=== PATIENT | female | born 1955 | race Caucasian/White ===

== ENCOUNTER 2019-10-20 07:25 | Outpatient (CLI) | payer BC, SELFPAY ==
--- NOTE | ~2019-10-20 | US_ITS ---
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 TECHNIQUE: Multiple grayscale and Doppler ultrasound images of the abdomen were obtained. COMPARISON: Ultrasound 03/02/2019, CT abdomen and pelvis 06/27/2008 FINDINGS: The visualized portions of the head, body, and tail of the pancreas are normal. The liver i s normal without focal lesion. No liver surface nodularity. There is normal flow in main portal vein. The gallbladder is normal in size. No gallstones. Gallbladder wall thickening is likely secondary to chronic liver disease. The common duct is normal and measures 6 mm. IMPRESSION: 1. Gallbladder wall thickening, likely secondary to chronic liver disease. Reviewed, dictated and finalized at location B.
== END 2019-10-20 07:26 | disposition home or self-care (01) ==
PROVIDERS: PCP Family Medicine
DX: K74.3 Primary biliary cirrhosis (principal)
CPT/HCPCS: 76705

== ENCOUNTER 2019-11-04 08:27 | Outpatient (CLI) | payer BC, SELFPAY ==
--- NOTE | ~2019-11-04 | MM_ITS ---
EXAMINATION: MM screening unique BI w batsheva HISTORY: Screening TECHNIQUE: Craniocaudal and mediolateral oblique 3-D tomosynthesis images were obtained and synthetic 2-D images were generated. CAD analysis was submitted and interpreted. COMPARISON: Comparison to multiple prior studies sequentially, with oldest reviewed study dated 08/14. BREAST PARENCHYMAL COMPOSITION: There are scattered areas of fibroglandular density. FINDINGS: There is no evidence of suspicious mass, calcification, or architectural distortion to sugg est malignancy in either breast. There has been no suspicious interval change. IMPRESSION: 1. No mammographic evidence of malignancy. 2. Recommend routine screening mammography in one year. BI-RADS Category 1: Negative Reviewed, dictated and finalized at location A.
== END 2019-11-04 08:28 | disposition home or self-care (01) ==
PROVIDERS: PCP Family Medicine; Visit Provider Family Medicine
DX: Z12.31 Encounter for screening mammogram for malignant neoplasm of breast (principal)
CPT/HCPCS: 77063; 77067

== ENCOUNTER 2020-04-05 09:44 | Outpatient (CLI) | payer BC, SELFPAY ==
--- NOTE | ~2020-04-05 | US_ITS ---
US abdomen limited INDICATION: Cirrhosis. Biliary cholangitis. PROCEDURE: Realtime right upper abdominal ultrasound. COMPARISON: Ultrasound dated 10/20/2019 FINDINGS: The pancreas is normal without focal mass or pancreatic ductal dilation. Liver echotexture is normal without focal mass or intrahepatic biliary dilatation. There is normal directional flow i n the portal vein. The gallbladder is normal without stones, gallbladder wall thickening or pericholecystic fluid. Comm on bile duct measures the 4 mm. No sonographic Rice's sign. IMPRESSION: 1: Normal limited abdominal ultrasound. Reviewed, dictated and finalized at location B. [facility]
== END 2020-04-05 09:45 | disposition home or self-care (01) ==
PROVIDERS: PCP Family Medicine
DX: K74.3 Primary biliary cirrhosis (principal)
CPT/HCPCS: 76705

== ENCOUNTER 2020-11-07 10:20 | Outpatient (CLI) | payer MEDICARE, SELFPAY ==
--- NOTE | ~2020-11-07 | MM_ITS ---
EXAMINATION: MM screening unique BI w batsheva HISTORY: Screening TECHNIQUE: Craniocaudal and mediolateral oblique 3-D tomosynthesis images were obtained and synthetic 2-D images were generated. CAD analysis was submitted and interpreted. COMPARISON: Comparison to multiple prior studies sequentially, with oldest reviewed study dated 08/18. BREAST PARENCHYMAL COMPOSITION: There are scattered areas of fibroglandular density. FINDINGS: There is no evidence of suspicious mass, calcification, or architectural distortion to sugg est malignancy in either breast. There has been no suspicious interval change. IMPRESSION: 1. No mammographic evidence of malignancy. 2. Recommend routine screening mammography in one year. BI-RADS Category 1: Negative Reviewed, dictated and finalized at location A.
== END 2020-11-07 10:21 | disposition home or self-care (01) ==
LOC: ANHIMG 10:22
PROVIDERS: PCP Family Medicine; Visit Provider Family Medicine
DX: Z12.31 Encounter for screening mammogram for malignant neoplasm of breast (principal)
CPT/HCPCS: 77063; 77067

== ENCOUNTER 2021-04-05 08:36 | Outpatient (CLI) | payer MEDICARE, SELFPAY ==
--- NOTE | ~2021-04-05 | US_ITS ---
EXAMINATION: US abdomen limited EXAM DATE: 04/05/2021 09:20 INDICATION: Hepatic Cirrhosis Due To Primary Biliary Cholangitis . TECHNIQUE: Multiple grayscale and Doppler images of the abdomen right upper quadrant were obtained (b y a technologist who performed the scan) and subsequently reviewed. Comparison is made to prior exami nation from 04/05/2020. FINDINGS: The pancreatic head and body are normal in appearance. The pancreatic tail is not visualized. The l iver has normal echogenicity and contour. There are no focal liver lesions identified. There is no evidence of intrahepatic biliary duct dilation. Portal venous flow was seen in the hepatopedal, nor mal direction and has normal Doppler waveform. No right-sided hydronephrosis. Common bile duct measures 6 mm, which is normal. The gallbladder wall is normal in thickness, with ex pected amount of distention. No sonographic evidence of pericholecystic fluid. There is no cholelit hiases. Technologist performing exam reports patient did not demonstrate sonographic Rice's sign. Please note that this sign is less reliable in patients who have received pain medication. IMPRESSION: 1. Unremarkable abdominal ultrasound exam. Reviewed, dictated and finalized at location B. [employer]
== END 2021-04-05 08:37 | disposition home or self-care (01) ==
PROVIDERS: PCP Family Medicine
DX: K74.3 Primary biliary cirrhosis (principal)
CPT/HCPCS: 76705

== ENCOUNTER 2021-09-21 11:04 | Day surgery (SDC) | payer MEDICARE, SELFPAY ==
[2021-09-01 11:54] VITALS: BMI 36.1
[2021-09-21 11:32] VITALS: BMI 35.9
[2021-09-21 11:35] VITALS: BP 101/77; PULSE 76; RESP 20; TEMP 37.3; O2SAT 100
[2021-09-21] MEDS: LACTATED RINGERS 1,000 ML 150 ML IV CONT (11:35)
--- NOTE | 2021-09-21 12:36 | P.PNAN_ITS ---
Anes - Initial Pre Proc Eval Procedure: Operation Date: 09/21/21 12:30 Proposed Procedures p Esophagogastroduodenoscopy - Westley Hernandez MD Date/Time: 09/21/21 12:36 Surgeon: Westley Hernandez MD Pre Op Diagnosis: EGD Pre Op Diagnosis: DYSPHAGIA Patient Data Age: 65 Gender: F Height: 1.68 m Weight: 100.9 kg Allergies Allergy/AdvReac Type Severity Reaction Status Date / Time meclizine Allergy Unknown Hives Verified 09/21/21 11:30 Home Medications Medication Instructions Recorded Confirmed Type black cohosh 20 mg tablet 20 mg PO DAILY 09/01/21 09/21/21 History citalopram 20 mg tablet 20 mg PO DAILY 09/01/21 09/21/21 History lifitegrast 5 % eye drops in a 1 drp EACH EYE Q12H 09/01/21 09/21/21 History dropperette (Xiidra) multivitamin with minerals-folic 1 tablet PO DAILY 09/01/21 09/21/21 History acid 0.4 mg tablet trazodone 50 mg tablet 50 mg PO HS 09/01/21 09/21/21 History ursodiol 300 mg capsule 300 mg PO BID 09/01/21 09/21/21 History Patient hx anesthesia problems: none Family hx anesthesia problems: none Results Review: All pre-operative results and documents have been reviewed as part of the pre- operative evaluation. [facility] Past Medical History Medical History (Updated 09/21/21 @ 12:42 by Elsa Fox CRNA) Anxiety Breast CA Morbid obesity Primary biliary cholangitis Surgical History Surgical History (Updated 09/21/21 @ 12:42 by Elsa Fox CRNA) S/P breast lumpectomy S/P hip replacement Family History Family History Other Diabetes mellitus Family history of arthritis Family history of coronary artery disease Family history of lung disease Hypertension Social History Social History Smoking status: Former smoker Alcohol intake: unknown Substance use type: does not use Living arrangements: with family Spiritual care concerns: No Anes - Eval Final PreProcedure Day of Procedure 09/21/21 12:36 Patient weight: morbidly obese Heart: regular rate and rhythm Lungs: clear to auscultation and normal air movement Airway: Mallampati scale class II Neurological: alert and oriented Last oral intake: >/= 8 hours ASA classification: III Emergent: no Anesthetic plan: proceed Anesthesia type and monitoring: general GIVS Results Review: All pre-operative results and documents have been reviewed as part of the pre- operative evaluation. Informed Consent: The patient's anesthetic plan and its attendant risks and benefits were discussed with the patient/family/POA. Questions were solicited and answers provided to the satisfaction of the patient/family/POA.
--- NOTE | 2021-09-21 12:51 | P.PNAN_ITS ---
Anes - Initial Pre Proc Eval Procedure: Operation Date: 09/21/21 12:30 Proposed Procedures p Esophagogastroduodenoscopy - Westley Hernandez MD Date/Time: 09/21/21 12:51 Surgeon: Westley Hernandez MD Pre Op Diagnosis: DYSPHAGIA Patient Data Age: 65 Gender: F Height: 1.68 m Weight: 100.9 kg Last Vital Signs Temp 37.3 C 09/21/21 11:35 Pulse 76 09/21/21 11:35 Resp 20 09/21/21 11:35 BP 101/77 09/21/21 11:35 Pulse Ox 100 09/21/21 11:35 O2 Del Method Room Air 09/21/21 11:35 Allergies Allergy/AdvReac Type Severity Reaction Status Date / Time meclizine Allergy Unknown Hives Verified 09/21/21 11:30 Home Medications Medication Instructions Recorded Confirmed Type black cohosh 20 mg tablet 20 mg PO DAILY 09/01/21 09/21/21 History citalopram 20 mg tablet 20 mg PO DAILY 09/01/21 09/21/21 History lifitegrast 5 % eye drops in a 1 drp EACH EYE Q12H 09/01/21 09/21/21 History dropperette (Xiidra) multivitamin with minerals-folic 1 tablet PO DAILY 09/01/21 09/21/21 History acid 0.4 mg tablet trazodone 50 mg tablet 50 mg PO HS 09/01/21 09/21/21 History ursodiol 300 mg capsule 300 mg PO BID 09/01/21 09/21/21 History Patient hx anesthesia problems: none Family hx anesthesia problems: none Results Review: All pre-operative results and documents have been reviewed as part of the pre- operative evaluation. [facility] Past Medical History Medical History Anxiety Breast CA Morbid obesity Primary biliary cholangitis Surgical History Surgical History S/P breast lumpectomy S/P hip replacement Family History Family History Other Diabetes mellitus Family history of arthritis Family history of coronary artery disease Family history of lung disease Hypertension Social History Social History Smoking status: Former smoker Alcohol intake: unknown Substance use type: does not use Living arrangements: with family Spiritual care concerns: No Anes - Eval Final PreProcedure Day of Procedure 09/21/21 12:51 Patient weight: obese Heart: regular rate and rhythm Lungs: clear to auscultation Airway: Mallampati scale class II Neurological: alert and oriented Last oral intake: >/= 8 hours ASA classification: III Emergent: no Anesthetic plan: proceed Anesthesia type and monitoring: general GIVS and standard monitoring Results Review: All pre-operative results and documents have been reviewed as part of the pre- operative evaluation. Informed Consent: The patient's anesthetic plan and its attendant risks and benefits were discussed with the patient/family/POA. Questions were solicited and answers provided to the satisfaction of the patient/family/POA.
--- NOTE | 2021-09-21 13:29 | WPDGICN ---
Assessment and Plan Assessment and plan (1) Dysphagia: Code(s): R13.10 - Dysphagia, unspecified Status: Acute Assessment and Plan: Patient has difficulty swallowing. She describes several distinct episodes of difficulty swallowing followed by emesis. There is concern she has esophageal narrowing. Plan is for EGD to assess more thoroughly. Further recommendations will be given after endoscopy. (2) Primary biliary cholangitis: Code(s): K74.3 - Primary biliary cirrhosis Status: Acute Assessment and Plan: Patient has an underlying history of primary biliary cholangitis. Currently followed by hepatology service at [facility]. She has been treated with Ursodiol with good response to therapy. Because she is going to have an endoscopy we will assess for the presence of varices at this time as well. 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 GI Consult Note Consult date/time: 09/21/21 13:29 Reason for consult: Dysphagia HPI: Meaghan Wharton is a 65 year old female presents for EGD at the request of Dr. Chung. Patient reports several distinct episodes where food will catch in the mid substernal portion of the chest. She subsequently will regurgitate or vomit. She is somewhat uncertain whether passes distally into the stomach. Patient denies any heartburn. She has had no weight loss. No bleeding is described. She is referred now for endoscopic evaluation. Patient denies any heartburn or indication of acid reflux in the past. Patient's past medical history is significant for PBC. Currently followed by Dr. Pereira at [facility] she is being treated with Ursodiol. She states that at [facility] an EGD was performed 10 years ago that revealed no evidence of esophageal varices. [facility] Past Medical History Medical History Anxiety Breast CA Morbid obesity Primary biliary cholangitis Surgical History Surgical History S/P breast lumpectomy S/P hip replacement Family History Family History Other Diabetes mellitus Family history of arthritis Family history of coronary artery disease Family history of lung disease Hypertension Social History Social History Smoking status: Former smoker Alcohol intake: unknown Substance use type: does not use Living arrangements: with family Spiritual care concerns: No Meds Home Medications and Allergies Home Medications Medication Instructions Recorded Confirmed Type black cohosh 20 mg tablet 20 mg PO DAILY 09/01/21 09/21/21 History citalopram 20 mg tablet 20 mg PO DAILY 09/01/21 09/21/21 History lifitegrast 5 % eye drops in a 1 drp EACH EYE Q12H 09/01/21 09/21/21 History dropperette (Xiidra) multivitamin with minerals-folic 1 tablet PO DAILY 09/01/21 09/21/21 History acid 0.4 mg tablet trazodone 50 mg tablet 50 mg PO HS 09/01/21 09/21/21 History ursodiol 300 mg capsule 300 mg PO BID 09/01/21 09/21/21 History Allergies Allergy/AdvReac Type Severity Reaction Status Date / Time meclizine Allergy Unknown Hives Verified 09/21/21 11:30 Vital Signs Vital Signs - 24 hr 09/21/21 11:35 Temperature 99.1 F Pulse Rate 76 Respiratory Rate 20 Blood Pressure 101/77 Pulse Oximetry 100 Oxygen Delivery Room Air Exam Narrative: Physical exam reveals patient be alert. Vital signs are stable. HEENT exam is unremarkable. Patient is anicteric. Lungs are clear to auscultation and percussion. Heart is without murmur or extra sounds. Abdomen bowel sounds are present soft nontender with no organomegaly. Digital external rectal exam is normal.
[2021-09-21 13:52] VITALS: BP 91/48; PULSE 74; RESP 16; O2SAT 98
--- NOTE | 2021-09-21 13:54 | WPDANESPN ---
Anes - Prog Note Post-Op Date/Time: 09/21/21 13:55 Cardiovascular status: normal Respiratory status: normal Airway patency: baseline Mental status: baseline Post-Op hydration status: normal Vital Signs: Last Vital Signs Temp 37.3 C 09/21/21 11:35 Pulse 76 09/21/21 11:35 Resp 20 09/21/21 11:35 BP 101/77 09/21/21 11:35 Pulse Ox 100 09/21/21 11:35 O2 Del Method Room Air 09/21/21 11:35 Pain Score (VAS): 0/10 I/O: Intake & Output 09/20/21 09/21/21 09/21/21 23:59 07:59 15:59 Intake Total 500 Balance 500 Patient Feedback: Patient satisfied with anesthetic care.
[2021-09-21 14:02] VITALS: BP 101/77; PULSE 74; RESP 16; O2SAT 97
--- NOTE | 2021-09-21 14:05 | SUR.PHASEII ---
PT AWAKE AND ALERT. DENIES PAIN. EATING PIPO CRACKERS AND DRINKING SODA
[2021-09-21 14:12] VITALS: BP 117/90; PULSE 74; RESP 16
== END 2021-09-21 14:23 | disposition home or self-care (01) ==
PROVIDERS: PCP Family Medicine; Visit Provider Internal Medicine Gastroenterology
PROC: 0DJ08ZZ Inspection of Upper Intestinal Tract, Via Natural or Artificial Opening Endoscopic (ICD-10-PCS; CPT 43235; principal; 2021-09-21 12:30)
DX: R13.19 Other dysphagia (principal)
CPT/HCPCS: 43235

== ENCOUNTER 2021-12-13 14:02 | Outpatient (CLI) | payer MEDICARE, SELFPAY ==
--- NOTE | ~2021-12-13 | MM_ITS ---
EXAMINATION: MM screening [facility] BI w batsheva HISTORY: Screening TECHNIQUE: Craniocaudal and mediolateral oblique 3-D tomosynthesis images were obtained and synthetic 2-D images were generated. CAD analysis was submitted and interpreted. COMPARISON: Comparison to multiple prior studies sequentially, with oldest reviewed study dated 08/22. BREAST PARENCHYMAL COMPOSITION: There are scattered areas of fibroglandular density. FINDINGS: There is architectural distortion in the right breast, consistent with previous lumpectomy. There is no evidence of suspicious mass, calcification, or architectural distortion to suggest malig rabia in either breast. There has been no suspicious interval change. IMPRESSION: 1. No mammographic evidence of malignancy. 2. Recommend routine screening mammography in one year. BI-RADS Category 2: Benign finding(s). Reviewed, dictated and finalized at location A.
== END 2021-12-13 14:03 | disposition home or self-care (01) ==
PROVIDERS: PCP Family Medicine; Visit Provider Family Medicine
DX: Z12.31 Encounter for screening mammogram for malignant neoplasm of breast (principal)
CPT/HCPCS: 77063; 77067

== ENCOUNTER 2022-04-05 09:55 | Outpatient (CLI) | payer MEDICARE, SELFPAY ==
--- NOTE | ~2022-04-05 | US_ITS ---
EXAMINATION: US abdomen limited DATE: 04/05/2022 10:37 INDICATION: Hepatic fibrosis TECHNIQUE: Multiple grayscale and Doppler ultrasound images of the abdomen were obtained. COMPARISON: 04/05/2021 FINDINGS: Bowel gas obscures visualization of the pancreas. The visualized portions of the pancreas a re unremarkable. The liver is normal with normal echogenicity and echotexture. No surface nodularity. Normal hepatopetal flow in the main portal vein. The gallbladder is normal with no abnormal wall thi ckening, pericholecystic fluid or stones. The normal common bile duct measures 6 mm. There was no son ographic Rice sign. IMPRESSION: 1. Unremarkable abdominal ultrasound. Reviewed, dictated and finalized at location L. [facility]
== END 2022-04-05 09:56 | disposition home or self-care (01) ==
PROVIDERS: PCP Family Medicine
DX: K74.02 Hepatic fibrosis, advanced fibrosis (principal)
CPT/HCPCS: 76705

== ENCOUNTER 2022-10-23 12:01 | Outpatient (CLI) | payer MEDICARE, SELFPAY ==
--- NOTE | 2022-10-23 | ECG_ITS ---
Measurements Intervals [place] Rate: 80 P: 50 TN: 171 QRS: 36 QRSD: 93 T: 2 QT: 369 QTc: 427 Interpretive Statements SINUS RHYTHM NONSPECIFIC T-WAVE ABNORMALITY ABNORMAL ECG NO PREVIOUS ECG AVAILABLE FOR COMPARISON Electronically Signed On 10-23-2022 15:15:43 CDT by Codey Winston M.D.
[2022-10-23 13:30] LABS: Basophils Absolute Auto 0.1 K/mm3 (0.0-0.1); Eosinophils Absolute Auto 0.4 K/mm3 (0-0.3); Eosinophils Percent Auto 7.2 % (0-4.4); Hematocrit 42.4 % (37.0-47.0); Hemoglobin 13.3 g/dL (12.0-15.0); Immature Granulocyte Absolute 0.01 K/mm3 (0.00-0.031); Immature Granulocyte Percent A 0.2 % (0-0.5); Lymphocytes Absolute Auto 1.25 K/mm3 (0.9-3.2); Lymphocytes Percent Auto 24.2 % (18.3-44.2); Mean Corpuscular HGB Conc 31.4 g/dl (32-36); Mean Corpuscular Hemoglobin 28.9 pg (26-34); Mean Corpuscular Volume 92.2 fl (80-100); Mean Platelet Volume 10.5 fl (7.4-10.4); Monocytes Absolute Auto 0.5 K/mm3 (0.1-0.6); Monocytes Percent Auto 9.3 % (2.6-8.5); Neutrophils Percent Auto 58.1 % (45.5-73.1); Platelet Count Result 234 k/mm3 (150-375); Red Cell Distribution Width 13.8 % (11.5-14.5); White Blood Count 5.2 K/mm3 (4.5-10.0)
[2022-10-23 13:35] LABS: Appearance Urine Clear (Clear); Bacteria Urine 1+ /hpf; Bilirubin Urine Negative (Negative); Blood Urine Negative (Negative); Color Urine Dark Yellow (Yellow); Glucose Urine UA Negative (Negative); Ketones Urine Negative (Negative); Leukocyte Esterase Ur 1+ LEU/UL (Negative); Nitrate Urine Negative (Negative); Non Pathogenic Casts 0-2; Protein Urine Negative (Negative); RBC Urine 0-2 /hpf (0-2); Specific Grav Ur 1.016 (1.001-1.035); Squamous Epithelial Cell Urine Few /hpf (Few); Urobilinogen Urine 0.2 mg/dL (<2.0); pH Urine 6.5 (5.0-9.0)
[2022-10-23 13:37] LABS: Add Urine Microscopic? YES
[2022-10-23 13:42] LABS: Chloride 104 mmol/L (98-107)
[2022-10-23 13:46] LABS: Anion Gap 6 mmol/L (8-16); Blood Urea Nitrogen 16 mg/dL (7-17); Calcium 9.2 mg/dL (8.4-10.2); Carbon Dioxide 28 mmol/L (22-30); Estimated Glomerular Filt Rate > 60; Glucose 90 mg/dL (65-110); Potassium 4.3 mmol/L (3.4-5.0); Sodium 138 mmol/L (137-145)
== END 2022-10-23 12:02 | disposition home or self-care (01) ==
PROVIDERS: PCP Family Medicine; Visit Provider Orthopaedic Surgery
DX: M16.9 Osteoarthritis of hip, unspecified (principal); E78.00 Pure hypercholesterolemia, unspecified; R94.31 Abnormal electrocardiogram [ECG] [EKG]
CPT/HCPCS: 36415; 80048; 81001; 85025; 87086; 87088; 93005

== ENCOUNTER 2022-11-27 11:57 | Outpatient (CLI) | payer MEDICARE, SELFPAY ==
[2022-11-27 13:46] LABS: Albumin Level 4.4 g/dL (3.5-5.1)
[2022-11-27 13:49] LABS: Appearance Urine Clear (Clear); Bacteria Urine None Seen /hpf; Bilirubin Urine Negative (Negative); Blood Urine Negative (Negative); Color Urine Yellow (Yellow); Glucose Urine UA Negative (Negative); Ketones Urine Negative (Negative); Leukocyte Esterase Ur Trace LEU/UL (Negative); Nitrate Urine Negative (Negative); Non Pathogenic Casts 0-2; Protein Urine Negative (Negative); RBC Urine 0-2 /hpf (0-2); Specific Grav Ur 1.007 (1.001-1.035); Squamous Epithelial Cell Urine None seen /hpf (Few); Urobilinogen Urine 0.2 mg/dL (<2.0); WBC Urine 0-5 /hpf
[2022-11-27 13:51] LABS: Urine Cotinine NEGATIVE
[2022-11-27 13:52] LABS: INR 0.9; Partial Thromboplastin Time 30.4 SECONDS (22.3-36.8); Prothrombin Time 12.8 Seconds (11.1-14.7)
[2022-11-27 13:53] LABS: Add Urine Microscopic? YES
[2022-11-27 14:17] LABS: Hemoglobin A1C 5.1 % (<5.7)
== END 2022-11-27 11:58 | disposition home or self-care (01) ==
LOC: ANHSURGERY 12:01
PROVIDERS: PCP Family Medicine; Visit Provider Orthopaedic Surgery
DX: M16.11 Unilateral primary osteoarthritis, right hip (principal); Z01.818 Encounter for other preprocedural examination
CPT/HCPCS: 80307; 81001; 82040; 83036; 85610; 85730; 87081

== ENCOUNTER 2022-12-11 14:57 | Observation (INO) | payer MEDICARE, SELFPAY ==
[2022-11-27 12:33] VITALS: BP 116/59; PULSE 73; RESP 16; TEMP 37.1; O2SAT 96; BMI 38.2
--- NOTE | 2022-11-27 12:43 | PC.NURSE ---
Report to the Outpatient Waiting Room, entrance under the green pavilion located off [facility], at time ___6:00AM____ on date __12/11/22 . Planned Procedure Time: __7:30AM . Time changes happen often and if your time is changed the preop area will call you the afternoon before. - You and your visitor will be asked to self-screen and do not enter if you have any COVID symptoms. - A mask is optional within the hospital at this time. Patients may have clear liquids (water, carbonated beverages, clear teas, apple juice) until 3 hours prior to surgery with a maximum of 20 ounces. - No food from midnight until time of surgery. Take the following medications with a SIP of water the morning of surgery: ___CITALOPRAM DO NOT STOP ANY OF YOUR OTHER PRESCRIPTION MEDICATIONS PRIOR TO SURGERY ?EXCEPT THE FOLLOWING Medications to discontinue per physician __HOLD ALL VITAMINS/SUPPLEMENTS 3 DAYS PRE-OP PER ANESTHESIA- LAST DOSE 12/07/[address] PANG Please no make-up, nail lao, hairspray, perfume, deodorant, or body powder the day of surgery. No jewelry (including any body piercings) or valuables the day of surgery, leave them at home. Please take a shower or bath the night before, or the morning of, surgery with an antibacterial soap. Wear comfortable, loose fitting clothing. - Jewelry must be removed prior to entering the operating room. Rings and piercings that are not removed may be cut off. - The hospital will not accept responsibility for valuables. - Please leave all valuables, including medications, at home the day of surgery. If you are going home after surgery, a licensed pile driver operator helper must drive you home. - NO public transportation without another adult if you receive anesthesia. - We recommend that an adult stay with you for 24 hours following discharge. - We also recommend that you do not drive, make important decision, drink alcoholic beverages, or take any drugs that were not prescribed by your health care provider for at least 24 hours after your discharge time. Follow any additional instructions given to you from your surgeon. If you or anyone in your household have experienced Covid symptoms in the past week, please notify your surgeon or the nurse liaison at the phone number below for possible testing. Telephone instructions given to __PATIENT and asked if any additional questions and then verbalized understanding. Patient advised to call surgeon office or pre surgery nurse liaison [phone] if any additional questions.
[2022-12-11] VITALS (16 sets, daily range): BP systolic 88–130; BP diastolic 56–86; PULSE 70–88; RESP 12–20; TEMP 36.1–37.2; O2SAT 92–100
--- NOTE | ~2022-12-11 | XR_ITS ---
EXAMINATION: XR hip RT 1V DATE: 12/11/2022 11:51 INDICATION: Postoperative evaluation following right total hip arthroplasty TECHNIQUE: Anteroposterior view of the right hip were obtained. COMPARISON: 10/22/2022 FINDINGS: Interval placement of a noncemented right total hip arthroplasty which appears well seated in near an atomic alignment on the single provided frontal projection. No fractures identified. IMPRESSION: 1. Right total hip arthroplasty, negative for postoperative purposes. Reviewed, dictated and finalized at location A.
--- NOTE | 2022-12-11 06:44 | WPDANESEPPF ---
Anes - Initial Pre Proc Eval Procedure: Operation Date: 12/11/22 07:30 Proposed Procedures p Right Total Hip Arthroplasty - Jin Juarez MD Date/Time: 12/11/22 06:44 Surgeon: Jin Juarez MD Pre Op Diagnosis: right hip djd Patient Data Age: 67 Gender: F Height: 1.64 m Weight: 102.3 kg Last Vital Signs Temp 37.1 C 11/27/22 12:33 Pulse 73 11/27/22 12:33 Resp 16 11/27/22 12:33 BP 116/59 L 11/27/22 12:33 Pulse Ox 96 11/27/22 12:33 O2 Del Method Room Air 11/27/22 12:33 Allergies Allergy/AdvReac Type Severity Reaction Status Date / Time meclizine Allergy Unknown Hives / Unverified 12/06/22 09:24 Red Face,Hives acetaminophen [From Tylenol] AdvReac AVOIDS Verified 12/03/22 13:57 BECAUSE OF LIVER PROBLEMS Home Medications Medication Instructions Recorded Confirmed Type black cohosh 20 mg tablet 40 mg PO DAILY 09/01/21 11/27/22 History lifitegrast 5 % eye drops in a 1 drp EACH EYE Q12H 09/01/21 11/27/22 History dropperette (Xiidra) multivitamin with minerals-folic 1 tablet PO DAILY 09/01/21 11/27/22 History acid 0.4 mg tablet ursodiol 300 mg capsule 900 mg PO QAM 09/01/21 11/27/22 History ascorbic acid (vitamin C) 1,000 mg 1 g PO DAILY 08/09/22 11/27/22 History tablet cholecalciferol (vitamin D3) 50 100 mcg PO DAILY 08/09/22 11/27/22 History mcg (2,000 unit) capsule folic acid 400 mcg tablet 0.4 mg PO DAILY 08/09/22 11/27/22 History garlic 300 mg capsule (Odorless 10 mg PO DAILY 08/09/22 11/27/22 History Garlic) glucosamine sulf dipotassium Cl 2 tablet PO DAILY 08/09/22 11/27/22 History 750 mg-chondroitin sulf 600 mg tablet vitamin B complex 1 tablet PO DAILY 08/09/22 11/27/22 History aspirin 81 mg tablet,delayed 81 mg PO DAILY 11/27/22 11/27/22 History release calcium carbonate 500 mg-vitamin 1 tablet PO DAILY 11/27/22 11/27/22 History D3 10 mcg (400 unit) tablet (Calcium 500 + D) citalopram 20 mg tablet 20 mg PO QAM 11/27/22 11/27/22 History fiber 2 tablet PO DAILY 11/27/22 11/27/22 History inulin-sorbitol 2 gram chewable 2 tablet PO DAILY 11/27/22 11/27/22 History tablet (Fiber Supplement (inulin)) lutein 25 mg-zeaxanthin 5 mg 2 cap PO DAILY 11/27/22 11/27/22 History capsule xvlgjcon-ptqorx-snvor extract 5 4 cap PO DAILY 11/27/22 11/27/22 History mg-6 mg-150 mg capsule (Fruit and Vegetable Daily) omega-3s 667 um-zby-onx-fish 3 cap PO DAILY 11/27/22 11/27/22 History oil-vitamin D3 250 unit capsule ([place] Benefits) omeprazole 20 mg capsule,delayed 20 mg PO QAM 11/27/22 11/27/22 History release trazodone 50 mg tablet 100 mg PO HS PRN Insomnia 11/27/22 11/27/22 History ursodiol 300 mg capsule 600 mg PO HS 11/27/22 11/27/22 History chlorhexidine gluconate 4 % 1 applic topical DAILY #237 mL 11/29/22 Rx topical liquid (Hibiclens) Patient hx anesthesia problems: none Family hx anesthesia problems: none Results Review: All pre-operative results and documents have been reviewed as part of the pre-operative evaluation. [facility] Past Medical History Medical History Anxiety Breast CA Degenerative joint disease (DJD) of hip Major depressive disorder, recurrent, in remission, unspecified Morbid obesity Personal history of malignant neoplasm of breast Primary biliary cholangitis Pure hypercholesterolemia, unspecified Surgical History Surgical History S/P breast lumpectomy S/P hip replacement Family History Family History Other Diabetes mellitus Family history of arthritis Family history of coronary artery disease Family history of lung disease Hypertension Social History Social History Smoking packs per day: 1 Smoking cigarettes per day: 20.0 Yea
[2022-12-11] MEDS: LACTATED RINGERS 1,000 ML 30 ML IV CONT ×3 (07:04→11:35)
[2022-12-11] MEDS: TRANEXAMIC ACID 1,000MG/ISO100 1,000 MG/100 ML BAG 200 MG IVPB (07:15)
--- NOTE | 2022-12-11 07:19 | WPDHPUPDATE1 ---
History and Physical Update Update Date/Time: 12/11/22 07:19 History and Physical has been reviewed, including an updated exam of the patient. There are NO changes in the patient's condition. Risks, benefits, and alternatives have been discussed and questions answered. Patient agrees to proceed with procedure.
[2022-12-11] MEDS: ceFAZolin 2 GM/D5W 50 ML 2 GM/50 ML BAG IVPB ×3 (08:12→23:28)
[2022-12-11] MEDS: TRANEXAMIC ACID 1,000 MG/10 ML AMPUL 1000 MG IV PUSH (10:30)
--- NOTE | 2022-12-11 11:19 | W.PM.PROC2 ---
Procedure Note - Detailed Date of Procedure 12/11/22 Pre-op Diagnosis right hip djd Post-op Diagnosis Same Procedure Performed R MACARIO Surgeon Jin Juarez MD Anesthesia General Description of Procedure THE PATIENT WAS TAKEN TO THE OPERATING ROOM IN STABLE CONDITION AND WAS PLACED IN THE LATERAL DECUBITUS AND THE RIGHT LOWER EXTREMITY WAS PREPPED AND DRAPED IN THE STERILE FASHION. INCISION WAS MADE IN THE POSTERIOR LATERAL SIDE OF THE HIP, DOWN TO THE FASCIA LAYER. THE FASCIA WAS INCISED. THE HIP WAS EXPOSED. THE SHORT EXTERNAL ROTATORS WERE EXPOSED. THE SCIATIC NERVE WAS IDENTIFIED. INCISION WAS MADE THROUGH THE SORT EXTERNAL ROTATORS AND THE CAPSULE OF THE HIP JOINT. THE HIP WAS DISLOCATED. AN OSTEOTOMY WAS MADE TO THE FEMORAL NECK ABOUT 1 CM PROXIMAL TO THE LESSER TROCHANTER. THE ACETABULUM WAS EXPOSED. THERE WAS SEVERE DJD SEEN. BEGINNING WITH A 44 REAMER THE ACETABULUM WAS REAMED TO 49 MM. A 49 MM TRIAL WAS PLACED IN 35 DEG OF ABDUCTION AND ANTEVERSION WAS IN ALIGNMENT WITH THE TRANS ACETABULAR LIGAMENT. THE FIT WAS EXCELLENT. THE TRIAL WAS REMOVED. A 50 MM BIOMET G7 COMPONENT WAS THEN TAPPED IN TO PLACE IN 35 DEG OF ABDUCTION AND ANTEVERSION IN ALIGNMENT WITH THE TRANSVERSE ACETABULAR LIGAMENT. THE FIT WAS EXCELLENT. THE ACETABULAR LINER WAS PLACED AND CHECKED FOR STABILITY. NEXT THE FEMUR WAS PREPARED WITH INITIAL CANAL FINDER THEN SEQUENTIAL BROACHING WITH A TAPERLOC HIP SYSTEM, UNTIL A 11 BROACH FIT WELL IN 15 OF ANTEVERSION. A -3 STANDARD OFFSET NECK WITH 36 MM HEAD TRIAL WAS PLACED. THE SHUCK TEST WAS EXCELLENT AND THE STABILITY IN FLEXION AND ROTATION WAS EXCELLENT. LEG LENGTHS WERE GROSSLY EQUAL. TRIALS WERE REMOVED. A BIOMET TAPERLOC 11 STEM WAS PLACED WITH A HIGH OFFSET NECK THE FIT WAS EXCELLENT IN 15 DEG OF ANTEVERSION. A -3 CERAMIC 36 MM FEMORAL HEAD WAS PLACED. THE HIP WAS TRIALED AND THE STABILITY WAS EXCELLENT WERE THE LEG LENGTHS AND THE SHUCK TEST. THE WOUND WAS IRRIGATED WITH STERILE BETADINE AND WATER FOR 3 MIN. THEN WASHED AGAIN. THE CAPSULE AND THE EXTERNAL ROTATORS WERE APPROXIMATED WITH NUMBER 2 VICRYL. THE FASCIA WITH No 2 QUIL AND THE SUB CUTANEOUS LAYER WITH 2-0 ABSORBABLE SUTURE WITH A RUNNING 3-0 SUBCUTICULAR LAYER WELL. DERMABOND WAS PLACED AND STERILE DRESSING WAS APPLIED. PATIENT WAS PLACED BACK ON TO THE SUPINE POSITION AND WAS EXTUBATED Estimated Blood Loss 800 Complications No immediate complications Condition Stable Disposition PACU
[2022-12-11] MEDS: fentaNYL CITRATE INJ (*CRX) 100 MCG/2 ML VIAL 25 MCG IV PUSH ×4 (12:10→13:06)
--- NOTE | 2022-12-11 13:40 | ADMGEN ---
This patient, Meaghan Wharton, was admitted to -. Patient/family oriented to hospital policies and general routines including ID bracelet, bed and alarms, visiting hours, pain management, procedures, bathroom and other care routines, personal items, smoking policy, room service/diet, and visiting hours. Information on how to activate the Rapid Response Team has been discussed. Patient/Family are encouraged to report perceived risks to care and to ask questions if they do not understand what they are told or what they should do.
[2022-12-11] MEDS: SODIUM CHLORIDE 0.9% IV 1,000 ML 125 ML IV CONT ×2 (14:43→22:31)
[2022-12-11] MEDS: KETOROLAC 15 MG/ML VIAL (*BKC) IV PUSH ×2 (14:44→20:27)
[2022-12-11] MEDS: HYDROcodone/acetaminophen (*CRX) 7.5-325 MG TABLET 1 TAB PO (14:47)
[2022-12-11] MEDS: SENNA/DOCUSATE SODIUM TABLET 2 TAB PO (16:54)
[2022-12-11] MEDS: ursodioL 300 MG CAPSULE 600 MG PO (20:26)
[2022-12-11] MEDS: ASPIRIN 325 MG ENTERIC TABLET PO (20:27)
[2022-12-12] VITALS (7 sets, daily range): BP systolic 82–114; BP diastolic 48–71; PULSE 86–95; RESP 18–20; TEMP 36.4–37.1; O2SAT 93–99
[2022-12-12] MEDS: KETOROLAC 15 MG/ML VIAL (*BKC) IV PUSH ×3 (01:41→14:54)
[2022-12-12 05:21] LABS: Basophils Percent Auto 0.2 % (0.2-1.2); Hematocrit 32.9 % (37.0-47.0); Hemoglobin 9.7 g/dL (12.0-15.0); Immature Granulocyte Absolute 0.05 K/mm3 (0.00-0.031); Immature Granulocyte Percent A 0.4 % (0-0.5); Lymphocytes Percent Auto 10.9 % (18.3-44.2); Mean Corpuscular HGB Conc 29.5 g/dl (32-36); Mean Corpuscular Hemoglobin 28.6 pg (26-34); Mean Corpuscular Volume 97.1 fl (80-100); Monocytes Absolute Auto 1.1 K/mm3 (0.1-0.6); Monocytes Percent Auto 9.5 % (2.6-8.5); Neutrophils Absolute Auto 9.5 K/mm3 (1.3-6.7); Platelet Count Result 179 k/mm3 (150-375); Red Blood Count 3.39 M/mm3 (4.2-5.4); Red Cell Distribution Width 14.2 % (11.5-14.5)
[2022-12-12 05:26] LABS: Anion Gap 4 mmol/L (8-16); Blood Urea Nitrogen 14 mg/dL (7-17); Carbon Dioxide 24 mmol/L (22-30); Chloride 106 mmol/L (98-107); Estimated CRCL calculation 79 ml/min; Estimated Glomerular Filt Rate > 60; Glucose 105 mg/dL (65-110); Potassium 4.6 mmol/L (3.4-5.0); Sodium 134 mmol/L (137-145)
[2022-12-12 05:49] LABS: Anisocytosis 1+ (NORMAL); Hypochromasia 1+ (NORMAL); Platelet Estimate Adequate (Adequate)
[2022-12-12 05:50] LABS: Crenated RBC 1+ (NORMAL); Schistocytes None Seen (NORMAL)
[2022-12-12] MEDS: SODIUM CHLORIDE 0.9% IV 1,000 ML 125 ML IV CONT (05:50)
[2022-12-12] MEDS: HYDROcodone/acetaminophen (*CRX) 7.5-325 MG TABLET 1 TAB PO (08:18)
[2022-12-12] MEDS: PANTOPRAZOLE 40 MG TABLET PO (08:55)
[2022-12-12] MEDS: ASCORBIC ACID 500 MG TABLET 1000 MG PO (08:55)
[2022-12-12] MEDS: ursodioL 300 MG CAPSULE 900 MG PO (08:55)
[2022-12-12] MEDS: SENNA/DOCUSATE SODIUM TABLET 2 TAB PO ×2 (08:55→16:22)
[2022-12-12] MEDS: CITALOPRAM HYDROBROMIDE 20 MG TABLET PO (08:55)
[2022-12-12] MEDS: polyethylene glycoL 3350 17 GM POWD.PACK PO (08:55)
[2022-12-12] MEDS: CHOLECALCIFEROL 1,000 UNITS TABLET 4000 UNITS PO (08:56)
[2022-12-12] MEDS: ASPIRIN 325 MG ENTERIC TABLET PO ×2 (08:56→20:25)
[2022-12-12] MEDS: ceFAZolin 2 GM/D5W 50 ML 2 GM/50 ML BAG IVPB (09:00)
--- NOTE | 2022-12-12 10:07 | WPDANESPN ---
Anes - Prog Note Post-Op Date/Time: 12/12/22 10:07 Cardiovascular status: normal Respiratory status: normal Airway patency: baseline Mental status: baseline Post-Op hydration status: normal Vital Signs: Last Vital Signs Temp 36.4 C 12/12/22 08:28 Pulse 88 12/12/22 08:28 Resp 18 12/12/22 08:28 BP 82/48 L 12/12/22 08:28 Pulse Ox 95 12/12/22 08:28 O2 Del Method Room Air 12/11/22 18:42 O2 Flow Rate 6 12/11/22 12:00 Pain Score (VAS): 0 I/O: Intake & Output 12/11/22 12/12/22 12/12/22 23:59 07:59 15:59 Intake Total 1220 1000 120 Balance 1220 1000 120 Laboratory Tests 12/12/22 05:07 12/12/22 05:07 12/12/22 05:07 WBC 12.0 H RBC 3.39 L Hgb 9.7 L D Hct 32.9 L MCV 97.1 MCH 28.6 MCHC 29.5 L RDW 14.2 Plt Count 179 MPV 10.0 Immature Gran % (Auto) 0.4 Neut % (Auto) 79.0 H Lymph % (Auto) 10.9 L [place] % (Auto) 9.5 H Eos % (Auto) 0.0 Baso % (Auto) 0.2 Lymph # (Auto) 1.30 [place] # (Auto) 1.1 H Eos # (Auto) 0.0 Baso # (Auto) 0.0 Abs Immat Gran (auto) 0.05 H Absolute Neuts (auto) 9.5 H Absolute Nucleated RBC 0.0 Nucleated RBC % 0.0 Platelet Estimate Adequate Hypochromasia 1+ Anisocytosis 1+ Crenated Cell 1+ Schistocytes None seen Sodium 134 L Potassium 4.6 Chloride 106 Carbon Dioxide 24 Anion Gap 4 L BUN 14 Creatinine 0.70 Estim Creat Clear Calc 79 Estimated GFR > 60 Glucose 105 Calcium 8.0 L Post-procedural complaints: none Patient Feedback: Patient satisfied with anesthetic care.
--- NOTE | 2022-12-12 14:10 | PM.PNORT ---
Progress Note: A&P Assessment and Plan (1) Degenerative joint disease (DJD) of hip: Qualifiers: Osteoarthritis type: primary Laterality: right Qualified Code(s): M16.11 - Unilateral primary osteoarthritis, right hip Code(s): M16.9 - Osteoarthritis of hip, unspecified Status: Acute Assessment and Plan: POD 1 WITH SLOW PROGRESS. WILL REEVALUATE TOMORROW FOR ACUTE REHAB VS SNF. Subjective Subjective Date/Time Seen: 12/12/22 14:10 Interval history: POD 1 HAVING A LOT OF NAUSEA AND VOMITING. BP IS STABLE BUT LABILE AT TIMES WITH PAIN MEDS. NO CALF PAIN. SLOW PROGRESS WITH PT. Exam Extrem: Other: VSS AFEBRILE DRESSING DRY NV INTACT NEG HOMANS SIGN, CALF AND THIGH SOFT NON TENDER Objective Data Vital Signs Vital Signs: Vital Signs - 24 hr 12/11/22 15:38 12/11/22 14:27 12/11/22 14:15 Temperature 36.2 C L Pulse Rate 88 Respiratory Rate 14 Blood Pressure 90/61 L Pulse Oximetry 94 99 Oxygen Delivery Room Air Room Air 12/11/22 14:23 12/11/22 14:53 12/11/22 15:53 Temperature 36.4 C 36.4 C 36.4 C Pulse Rate 70 82 82 Respiratory Rate 14 14 14 Blood Pressure 91/58 L 104/56 L 97/58 L Pulse Oximetry 97 100 95 Oxygen Delivery 12/11/22 18:42 12/11/22 19:53 12/11/22 23:53 Temperature 36.6 C 37.2 C Pulse Rate 73 86 Respiratory Rate 20 20 Blood Pressure 88/61 L 99/59 L Pulse Oximetry 97 96 Oxygen Delivery Room Air 12/12/22 03:53 12/12/22 08:28 12/12/22 08:00 Temperature 37.1 C 36.4 C Pulse Rate 86 88 88 Respiratory Rate 20 18 18 Blood Pressure 86/52 L 82/48 L Pulse Oximetry 96 95 95 Oxygen Delivery Room Air 12/12/22 13:12 Temperature 36.7 C Pulse Rate 87 Respiratory Rate 18 Blood Pressure 95/60 L Pulse Oximetry 97 Oxygen Delivery Intake/Output Intake/Output: Intake & Output 12/09/22 12/10/22 12/11/22 12/12/22 23:59 23:59 23:59 23:59 Intake Total 1870 1660 Balance 1870 1660 Meds/Results Medications: Active Medications Generic Name Dose Route Start Last Admin Trade Name Freq PRN Reason Stop Dose Admin Acetaminophen 650 mg 12/11/22 14:08 Acetaminophen 325 Mg Tablet PO Q6H PRN Mild Pain (1-3) or Fever Hydrocodone Bitart/Acetaminophen 1 tab 12/11/22 14:08 12/12/22 08:18 Hydrocodone/Acetaminophen (*Crx) 7.5-325 Mg Tablet PO 1 tab Q3H PRN Administration Pain Rated 4-6 Hydrocodone Bitart/Acetaminophen 2 tab 12/11/22 14:08 Hydrocodone/Acetaminophen (*Crx) 7.5-325 Mg Tablet PO Q6H PRN Pain Rated 7-10 Ascorbic Acid 1,000 mg 12/12/22 09:00 12/12/22 08:55 Ascorbic Acid 500 Mg Tablet PO 1,000 mg DAILY ISH Administration Aspirin 325 mg 12/11/22 21:00 12/12/22 08:56 Aspirin 325 Mg Enteric Tablet PO 325 mg Q12HR ISH Administration Calcium Carbonate 500 mg 12/12/22 09:00 12/12/22 08:55 Calcium/Vitamin D 500 Mg Tablet PO 500 mg DAILY ISH Administration Citalopram Hydrobromide 20 mg 12/12/22 09:00 12/12/22 08:55 Citalopram Hydrobromide 20 Mg Tablet PO 20 mg QAM ISH Administration Diazepam 5 mg 12/11/22 14:08 Diazepam (*Crx) 5 Mg Tablet PO Q6H PRN Anxiety/Muscle Spasm Sodium Chloride 1,000 mls @ 125 mls/hr 12/11/22 14:08 12/12/22 05:50 Normal Saline Iv IV CONT 125 mls/hr .Q8H ISH Administration Naloxone HCl 0.1 mg 12/11/22 14:08 Naloxone Hcl 0.4 Mg/Ml Vial IV PUSH Q2M PRN Opiate Reversal Non-Formulary Medication 1 drop 12/11/22 21:00 12/12/22 11:17 Lifitegrast [Xiidra] EACH EYE 01/10/23 20:59 Not Given Q12HR ISH Ondansetron HCl 4 mg 12/11/22 14:08 Ondansetron Inj 4 Mg/2 Ml Vial IV PUSH Q4H PRN Nausea And Vomiting Pantoprazole Sodium 40 mg 12/12/22 09:00 12/12/22 08:55 Pantoprazole 40 Mg Tablet PO 40 mg QAM ISH Administration Polyethylene Glycol 17 gm 12/12/22 09:00 12/12/22 08:55 Polyethylene Glycol 3350 17 Gm Powd.Pack PO 17 gm QAM S
[2022-12-12] MEDS: ursodioL 300 MG CAPSULE 600 MG PO (20:25)
[2022-12-12] MEDS: HYDROcodone/acetaminophen (*CRX) 7.5-325 MG TABLET 2 TAB PO (22:48)
[2022-12-13 03:54] VITALS: BP 99/54; PULSE 89; RESP 18; TEMP 36.5; O2SAT 91
[2022-12-13 08:00] VITALS: PULSE 89; RESP 18; O2SAT 91
[2022-12-13] MEDS: ASCORBIC ACID 500 MG TABLET 1000 MG PO (08:53)
[2022-12-13] MEDS: CITALOPRAM HYDROBROMIDE 20 MG TABLET PO (08:53)
[2022-12-13] MEDS: CHOLECALCIFEROL 1,000 UNITS TABLET 4000 UNITS PO (08:53)
[2022-12-13] MEDS: ursodioL 300 MG CAPSULE 900 MG PO (08:53)
[2022-12-13] MEDS: PANTOPRAZOLE 40 MG TABLET PO (08:53)
[2022-12-13] MEDS: ASPIRIN 325 MG ENTERIC TABLET PO (08:54)
[2022-12-13] MEDS: polyethylene glycoL 3350 17 GM POWD.PACK PO (08:54)
[2022-12-13] MEDS: SENNA/DOCUSATE SODIUM TABLET 2 TAB PO (08:54)
--- NOTE | 2022-12-13 09:19 | PM.PNORT ---
Progress Note: A&P Assessment and Plan (1) S/P total hip arthroplasty: Qualifiers: Laterality: right Qualified Code(s): Z96.641 - Presence of right artificial hip joint Code(s): Z96.649 - Presence of unspecified artificial hip joint Status: Acute Assessment and Plan: POD #2 : Right MACARIO Continue PT/OT. WBAT. Walker. HIGH FALL RISK. Continue pain control. Ice Hip. Protect skin. DVT prophylaxis with Aspirin. SCDs. Incentive Spirometry Use reviewed. Monitor Dressing. Change prior to discharge. Bowel Regimen. Dispo: Home with Home Health pending progress with PT/OT Plan Reviewed exam, vitals, labs with attending MD, Dr. Juarez. Agrees with current plan as indicated above. No further recommendations at this time. Subjective Subjective Date/Time Seen: 12/13/22 09:19 Post Op day: 2 Interval history: POD #2: Right MACARIO Patient doing well. Pain well controlled. Improvement in BP today. Sitting up in chair at time of exam. Hopeful for discharge. Review of Systems Review of Systems: All systems reviewed & are unremarkable except as noted in HPI and below Constitutional: Constitutional: Denies chills, Denies fever(s), Denies headache(s), Denies lethargy and Reports weakness ENT: Denies headache(s) Cardiovascular: Cardiovascular: Denies chest pain, Denies diaphoresis, Denies lightheadedness, Denies palpitations, Denies dyspnea and Denies dyspnea on exertion Respiratory: Respiratory: Denies cough, Denies dyspnea and Denies dyspnea on exertion Gastrointestinal: Gastrointestinal: Denies constipation, Denies diarrhea, Denies nausea and Denies vomiting Genitourinary: Genitourinary: Reports urinary frequency, Denies dysuria and Denies urinary hesitancy Musculoskeletal: Musculoskeletal: Reports joint swelling (Right Hip ) and Reports limited range of motion (Right Hip due to recent surgery ) Neurologic: Denies headache(s) and Reports weakness Endocrine: Endocrine: Denies palpitations Exam Const: General: comfortable and no acute distress Resp: Effort & Inspection: normal respiratory effort Cardio: Rate: regular rate Rhythm: regular rhythm GI: Inspection: non-distended Skin: General skin exam: normal color Other: Incision right hip c/d/i. Surrounding tissue without redness/warmth. Mild swelling consistent with recent surgery. No drainage. Neuro: Cognition (Neuro): normal cognition Speech: normal speech Extrem: Right lower extremity: normal to inspection, normal capillary refill, hip/thigh Details: tenderness Location: of the hip (Thigh soft ) Location: laterally and anteriorly, swelling Location: at the hip, abnormal ROM (limited consistent with recent surgery ) Details: pain with active ROM during and pain with passive ROM during and other (Incision c/d/i. ); no deformity and no unusual warmth, knee Details: normal to inspection; no tenderness and no swelling, lower leg (Negative Lesley's Sign ) Details: normal to inspection and no edema; no tenderness, ankle (+ankle dorsiflexion/plantarflexion) Details: normal to inspection and no edema; no tenderness, no swelling and no ecchymosis and foot Details: normal capillary refill, toes with normal ROM, vascular exam Details: dorsalis pedis pulse present and motor-sensory exam Details: light-touch normal; no tenderness Objective Data Vital Signs Vital Signs: Vital Signs - 24 hr 12/12/22 13:12 12/12/22 18:19 12/12/22 20:26 Temperature 36.7 C 36.6 C 36.8 C Pulse Rate 87 93 88 Respiratory Rate 18 18 18 Blood Pressure 95/60 L 102/52 L 114/71 Pulse Oximetry 97 98 99 Oxygen Delivery 12/12/22 20:35 12/12/22 23:39 12/13/22 03:54 Temperature 37.0 C 36.5 C Pulse Rate 95 89 Respiratory Rate 18 18 Blood Pressure 105/64 99/54 L Pulse Oximetry 93 91 Oxygen Delivery Room Air Intake/Output Intake/Output: Intake & Output 12/10/22 12/11/22 12/12/22 12/13/22 23:59 23:59 23:59 23:59 Intake Total 1870 1900 120
[2022-12-13 13:39] VITALS: BP 102/62; PULSE 103; RESP 18; TEMP 36.6; O2SAT 98
--- NOTE | 2022-12-13 14:33 | PM.DS ---
DS: Admitting Diagnosis Discharge Date 12/13/2022 Admitting Diagnosis Right MACARIO DS: Discharge Diagnosis Discharge Diagnosis (1) S/P total hip arthroplasty: Qualifiers: Laterality: right Qualified Code(s): Z96.641 - Presence of right artificial hip joint Code(s): Z96.649 - Presence of unspecified artificial hip joint Status: Acute Assessment and Plan: POD #2 : Right MACARIO Continue PT/OT. WBAT. Walker. HIGH FALL RISK. Continue pain control. Ice Hip. Protect skin. DVT prophylaxis with Aspirin. SCDs. Incentive Spirometry Use reviewed. Monitor Dressing. Change prior to discharge. Bowel Regimen. Dispo: Home with Home Health pending progress with PT/OT Plan Reviewed exam, vitals, labs with attending MD, Dr. Juarez. Agrees with current plan as indicated above. No further recommendations at this time. DS: Summary Hospital Course Reason for hospitalization: Right MACARIO Hospital Course: 67 year old female admitted s/p Right MACARIO for postoperative medical management, pain control and mobilization with PT/OT. Patient progressed well with PT/OT. Difficulty with nausea and hypotension on POD #1. Improved on POD #2. Lowered pain medication dose with improvement. The patient has been cleared to be discharged home with home health at this time. All discharge care instructions reviewed at depth. New medications reviewed. Follow up planned for 3 weeks in the outpatient orthopedic clinic with Dr. Juarez. Dr. Juarez agrees with current discharge plans. Status at Discharge Functional status at discharge: uses cane/walker Overall status at discharge: patient is progressing back to baseline Time Spent with Patient Time attestation: Total time spent providing and/or coordinating discharge services: Exam Const: General: comfortable and no acute distress Resp: Effort & Inspection: normal respiratory effort Cardio: Rate: regular rate Rhythm: regular rhythm GI: Inspection: non-distended Skin: General skin exam: normal color Other: Incision right hip c/d/i. Surrounding tissue without redness/warmth. Mild swelling consistent with recent surgery. No drainage. Neuro: Cognition (Neuro): normal cognition Speech: normal speech Extrem: Right lower extremity: normal to inspection, normal capillary refill, hip/thigh Details: tenderness Location: of the hip (Thigh soft ) Location: laterally and anteriorly, swelling Location: at the hip, abnormal ROM (limited consistent with recent surgery ) Details: pain with active ROM during and pain with passive ROM during and other (Incision c/d/i. ); no deformity and no unusual warmth, knee Details: normal to inspection; no tenderness and no swelling, lower leg (Negative Lesley's Sign ) Details: normal to inspection and no edema; no tenderness, ankle (+ankle dorsiflexion/plantarflexion) Details: normal to inspection and no edema; no tenderness, no swelling and no ecchymosis and foot Details: normal capillary refill, toes with normal ROM, vascular exam Details: dorsalis pedis pulse present and motor-sensory exam Details: light-touch normal; no tenderness Discharge Plan Discharge Attending physician on discharge: Jin Juarez Discharging Clinician: Eveline Kat Patient Disposition: Home Health Service Activity: may shower and no driving Diet: as tolerated Wound Care Instructions: follow printed instructions Discharge Instructions: Post Op Total Hip Replacement Instructions Dr. Jin Juarez [phone] Your dressing will be changed prior to your discharge. You will be sent home with one additional dressing to be changed on post op day 7 by the home health RN. You may remove the dressing on post op day 14. Your incision was closed with dermabond, allow the dermabond to fall off naturally once your dressing is removed. Do not pull at the dermabond or disrupt incision healing. You may shower with your dressing but do not submerge in a bath tub.
[2022-12-13] MEDS: HYDROcodone/acetaminophen (*CRX) 5-325 MG TABLET 1 TAB PO (15:50)
== END 2022-12-13 16:00 | disposition home health service (06) ==
LOC: ANH2MED 15:49
PROVIDERS: Admitting Provider Orthopaedic Surgery; PCP Family Medicine; Visit Provider Orthopaedic Surgery
PROC: (CPT 27130; principal; 2022-12-11 07:30)
DX: M16.11 Unilateral primary osteoarthritis, right hip (principal); F41.9 Anxiety disorder, unspecified; F33.40 Major depressive disorder, recurrent, in remission, unspecified; E66.01 Morbid (severe) obesity due to excess calories; G47.00 Insomnia, unspecified; Z68.37 Body mass index [BMI] 37.0-37.9, adult; E78.00 Pure hypercholesterolemia, unspecified; Z87.891 Personal history of nicotine dependence; Z79.82 Long term (current) use of aspirin; Z79.899 Other long term (current) drug therapy
CPT/HCPCS: 27130; 36415; 73501; 80048; 80307; 81001; 82040; 83036; 85025; 85610; 85730; 86850; 86900; 86901; 87081; 97110; 97116; 97161; 97165; 97530; 97535; A9270; C1776; G0378; J0171; J0690; J1100; J1170; J1885; J2250; J2270; J2405; J2704; J2795; J3010; J7030; J7120

== ENCOUNTER 2023-02-21 13:56 | Outpatient (CLI) | payer MEDICARE, SELFPAY ==
--- NOTE | ~2023-02-21 | MM_ITS ---
EXAMINATION: MM screening unique BI w batsheva HISTORY: Screening mammogram TECHNIQUE: Craniocaudal and mediolateral oblique 3-D tomosynthesis images were obtained and synthetic 2-D images were generated. CAD analysis was submitted and interpreted. COMPARISON: 12/13/2021, 11/07/2020, 11/04/2019 bilateral screening mammogram examinations BREAST PARENCHYMAL COMPOSITION: There are scattered areas of fibroglandular density. FINDINGS: Volume loss and mid to upper outer right breast scarring and retraction are again noted, wi thout significant change since 11/04/2019, consistent with prior partial mastectomy for breast cancer. There is some associated benign calcifications. There is no evidence of suspicious mass, calcification, or new architectural distortion to suggest m alignancy in either breast. There has been no suspicious interval change. IMPRESSION: 1. Status post right partial mastectomy for breast cancer. No mammographic evidence of malignancy. 2. Recommend routine screening mammography in one year. BI-RADS Category 2: Benign finding(s). Reviewed, dictated and finalized at location A. CIPAL MILITARY ANALYST IMPRESSION: 1. Status post right partial mastectomy for breast cancer. No mammographic evid ence of malignancy. 2. Recommend routine screening mammography in one year. BI-RADS Category 2: Benign finding(s).
== END 2023-02-21 13:57 | disposition home or self-care (01) ==
LOC: ANHIMG 13:58
PROVIDERS: PCP Family Medicine; Visit Provider Family Medicine
DX: Z12.31 Encounter for screening mammogram for malignant neoplasm of breast (principal)
CPT/HCPCS: 77063; 77067

== ENCOUNTER 2023-05-14 08:50 | Outpatient (CLI) | payer MEDICARE, SELFPAY ==
--- NOTE | ~2023-05-14 | US_ITS ---
Limited Abdominal Sonogram: Real-time sonographic imaging of the right upper quadrant was performed. Clinical History: Hepatic fibrosis Findings: The liver appears mildly heterogeneous/echogenic, with no evidence of mass lesion or bile duct dilatation. Main portal vein demonstrates normal direction of flow. The gallbladder is well dist ended, and appears normal with no evidence of gallstone or wall thickening. The common bile duct chinmay ures 4 mm. The visualized pancreas, aorta, and IVC are unremarkable. Impression: Mild heterogeneous/echogenic hepatic echotexture. Correlate for fatty infiltration or other chronic l iver disease. Reviewed, dictated and finalized at location . Impression: Mild heterogeneous/echogenic hepatic echotexture. Correlate for fatty infiltrat ion or other chronic liver disease.
== END 2023-05-14 08:51 | disposition home or self-care (01) ==
PROVIDERS: PCP Family Medicine; Visit Provider Internal Medicine Gastroenterology
DX: K74.02 Hepatic fibrosis, advanced fibrosis (principal); K74.3 Primary biliary cirrhosis
CPT/HCPCS: 76705

== ENCOUNTER 2024-01-27 10:56 | Outpatient (CLI) | payer MEDICARE, SELFPAY ==
--- NOTE | ~2024-01-27 | DEXA_ITS ---
Bone Density Report Name: SHANNON FRIEDMAN Age: 68 Sex: Female Ethnicity: White Date of : 1955 Indication: postmenopausal; screening for osteoporosis; prior fracture; cancer; Referring Provider: IRMA, JHONY Study: Bone densitometry was performed. Exam Date: January 27, 2024 Accession number: [id number] Bone Density: Region BMD T-score Z-score Classification AP Spine(L1-L4) 1.033 -0.1 1.9 Normal World Health Organization criteria for BMD impression classify patients as: Normal (T-score at or above -1.0), Osteopenia (T-score between -1.0 and -2.5), or Osteoporosis (T-score at or below -2.5). Clinical Information Provided by Patient: Have had a previous hip or vertebral fracture Has had a low trauma fracture Has used the following medications: Vitamin D, Calcium Has the following medical conditions: Cancer Patient maximum height was 66 No regular weight bearing exercise Does not regularly consume dairy products Onset of menses at age 10 Number of children 0 Impression: The patient has normal bone mass. The patient has risk factors, including: previous fracture. Discussion: INCREASED RISK OF FRACTURE DUE TO HISTORY OF FRACTURE. The patient's previous fracture puts the patient at high risk of a future fracture. In untreated patients, the risk of osteoporotic fracture increases approximately two-fold for each 1.0 SD decrease in T-score. Low bone density is not the only risk factor for fracture; also consider factors such as patient's age, frailty or poor health, risk of falling, risk of injury, previous osteoporotic fracture, family history of osteoporosis, cigarette smoking, low body weight, etc. Not everyone with a low trauma fracture has osteoporosis; osteomalacia and other metabolic bone disorders should also be considered. Patients who have osteoporosis should be evaluated for specific diseases and conditions (secondary causes) that may cause or contribute to bone loss and fracture risk. National Osteoporosis Foundation (NOF) recommends pharmacologic intervention for patients with a prior hip or vertebral fracture regardless of BMD T-score. The patient should follow a healthful lifestyle (good nutrition with adequate calcium and vitamin D, and appropriate weight-bearing exercise). Follow-Up: Consider a repeat BMD and Vertebral Fracture Assessment (VFA) exam in 2 years or sooner if medically necessary, to reassess this patient's status. Reported by: AIDEE on 01/27/2024 11:30:00 AM. Reviewed, dictated and finalized at location Miguel ERNANDEZ
== END 2024-01-27 10:57 | disposition home or self-care (01) ==
LOC: ANHIMG 11:03
PROVIDERS: PCP Family Medicine; Visit Provider Internal Medicine Gastroenterology
DX: K74.3 Primary biliary cirrhosis (principal); K74.00 Hepatic fibrosis, unspecified; Z78.0 Asymptomatic menopausal state
CPT/HCPCS: 77080

== ENCOUNTER 2024-03-19 09:59 | Outpatient (CLI) | payer MEDICARE, SELFPAY ==
--- NOTE | ~2024-03-19 | MM_ITS ---
EXAMINATION: MM screening unique BI w batsheva HISTORY: Screening TECHNIQUE: Craniocaudal and mediolateral oblique 3-D tomosynthesis images were obtained and synthetic 2-D images were generated. CAD analysis was submitted and interpreted. COMPARISON: Comparison to multiple prior studies sequentially, with oldest reviewed study dated 10/2017. BREAST PARENCHYMAL COMPOSITION: Not dense: There are scattered areas of fibroglandular density. FINDINGS: There are stable lumpectomy changes in the upper outer quadrant of the right breast. There is no evidence of suspicious mass, calcification, or architectural distortion to suggest malignancy i n either breast. There has been no suspicious interval change. IMPRESSION: 1. No mammographic evidence of malignancy. 2. Recommend routine screening mammography in one year. BI-RADS Category 2: Benign finding(s). Reviewed, dictated and finalized at location A. IESEL ENGINEERING MANAGER
== END 2024-03-19 10:00 | disposition home or self-care (01) ==
PROVIDERS: Visit Provider Family Medicine
DX: Z12.31 Encounter for screening mammogram for malignant neoplasm of breast (principal)
CPT/HCPCS: 77063; 77067

== ENCOUNTER 2025-02-23 09:58 | Outpatient (CLI) | payer MEDICARE, SELFPAY ==
--- NOTE | ~2025-02-23 | MR_ITS ---
EXAMINATION: MR lumbar spine wo con DATE: 02/23/2025 10:22 INDICATION: Low back pain. Right hip and leg pain. TECHNIQUE: Magnetic resonance imaging (MRI) of the lumbar spine was performed without intravenous contrast. COMPARISON: None FINDINGS: There is 7 degrees levocurvature of lumbar spine. There is mild chronic anterior wedging of T10-L1 vertebral bodies. There is mildly decreased disc height at L1-L2, moderately decreased disc height at L2-L3, and severely decreased disc height at L3-L4, L4-L5, and L5-S1. The distal spinal cord signal intensity is normal. The conus medullaris is at T12-L1. The following disc levels are specifically discussed: L1-L2: The disc is bulging and has an annular fissure. There is mild bilateral facet joint osteoarthritis. There is mild bilateral neural foraminal stenosis. There is mild central canal stenosis. L2-L3: The disc is bulging and has an annular fissure. There is severe right and mild left facet joint osteoarthritis. There is mild bilateral neural foraminal stenosis. There is mild central canal stenosis. L3-L4: The disc is bulging and has an annular fissure. There is moderate right and mild left facet joint osteoarthritis. There is moderate right and mild left neural foraminal stenosis. There is mild central canal stenosis. L4-L5: The disc is bulging and has an annular fissure. There is moderate right and severe left facet joint osteoarthritis. There is mild bilateral neural foraminal stenosis. There is mild central canal stenosis. L5-S1: The disc is bulging. There is severe bilateral facet joint osteoarthritis. There is mild bilateral neural foraminal stenosis. There is mild central canal stenosis. IMPRESSION: 1. Severe lumbar spondylosis. Reviewed, dictated and finalized at location E. EKEEPING ROOM ATTENDANT
== END 2025-02-23 09:59 | disposition home or self-care (01) ==
LOC: MICIMG 09:59
PROVIDERS: PCP Family Medicine; Visit Provider Orthopaedic Surgery
DX: M43.06 Spondylolysis, lumbar region (principal)
CPT/HCPCS: 72148